=== PATIENT | female | born 1990 | race African-American/Black ===

== ENCOUNTER 2019-11-25 20:07 | Emergency (ER) | payer SELFPAY ==
[2019-11-25 20:16] VITALS: TEMP 98.4; BMI 47.6
[2019-11-25] MEDS ORDERED: KETOROLAC TROMETHAMINE 60 MG/2 ML VIAL ONE (20:18)
[2019-11-25] MEDS ORDERED: KETOROLAC TROMETHAMINE 60 MG/2 ML VIAL IM ONE (20:23)
--- NOTE | 2019-11-25 20:41 | PDOC ---
Documentation entered by Maranda Solis SCRIBE, acting as scribe for Donald Davey MD. Donald Davey MD: This documentation has been prepared by the desireeibe, Maranda Solis SCRIBE, under my direction and personally reviewed by me in its entirety. I confirm that the documentation accurately reflects all work, treatment, procedures, and medical decision making performed by me. History of Present Illness - General Chief Complaint: Chest Pain Stated Complaint: CHEST PAIN History Source: Patient Exam Limitations: No Limitations - History of Present Illness Initial Comments: 11/25/19 20:32 Patient is a 39 year old female with a significant past medical history of HTN( compliant with medication) who presents to the ED with 1 day of chest pain. Patient describes the pain as sharp and radiates to her shoulders with a severity of 10/10, she states it worsens with exertion. She states she took her medication this morning and denies taking any medication for her symptoms. Patient denies any recent illnesses. Denies any family history of cardiovascular disease. PAST MEDICAL HISTORY: HTN PAST SURGICAL HISTORY: no significant history FAMILY HISTORY: no pertinent history SOCIAL HISTORY: Pt lives with family and is employed. Denies EtOH use and recreational drug use. MEDICATIONS: reviewed ALLERGIES: As per nursing notes General: No fevers or chills, no weakness, no weight loss HEENT: No change in vision. No sore throat,. No ear pain CardioVascular: +Chest pain. No shortness of breath Respiratory:No cough, or wheezing. Gastrointestinal: no nausea, vomiting, diarrhea or constipation, No rectal bleeding Genitourinary: No dysuria, hematuria, or frequency Musculoskeletal: No joint or muscle pain or swelling Neurologic: No headache, vertigo, dizziness or loss of consciousness Psychiatric: nor depression Skin: No rashes or easy bruising Endocrine: no increased thirst or abnormal weight change Allergic: no skin or latex allergy All other systems reviewed and normal General: Well-nourished well-developed individual, no acute distress HEENT: Throat: Normal, tonsils normal, no erythema or exudate Neck: Supple, no meningeal signs, no lymphadenopathy Eyes::Pupils equal reactive and round, extraocular motion intact Chest: +Pain reproduced with palpation to anterior chest wall. Pain reproduced with movement and deep respiration. Cardiac: S1-S2 normal, regular rate and rhythm, no murmurs rubs or gallops Respiratory: Lungs clear to auscultation bilateral Abdomen: Soft, nondistended, normal bowel sounds, nontender to palpation diffusely Extremities: Warm, dry, no cyanosis, clubbing, or edema Skin: No rashes Neuro: Alert and oriented x3, nonfocal exam, grossly intact, normal gait Psych: Normal mood and affect Assessment and plan: This is a 29-year-old female who comes in complaining of approximately 1 hour of anterior chest wall pain. Pain is worse with movement and use of muscles of anterior chest wall. Pain is reproduced with palpation. Patient had an EKG that showed normal sinus rhythm at a rate of [address]- T wave changes and normal EKG Patient given Toradol and prescription for naproxen sent to her pharmacy. Patient discharged. Past History - Past Medical History Allergies/Adverse Reactions: Allergies Allergy/AdvReac Type Severity Reaction Status Date / Time No Known Allergies Allergy Verified 11/25/19 20:08 Home Medications: Ambulatory Orders Hydrochlorothiazide [Hctz -] 12.5 mg PO DAILY 11/25/19 Lisinopril 20 mg PO DAILY 11/25/19 Naproxen [Naprosyn -] 500 mg PO BID #14 tablet 11/25/19 Review of Systems - Review of Systems Able to Perform ROS?: Yes *Physical Exam - Vital Signs Last Vital Signs Temp Pulse Resp BP Pulse Ox 98.4 F 86 26 H 174/120 H 100 11/25/19 20:12 11/25/19 20:12 11/25/19 20:12 11/25/19 20:12 11/25/19 20:12 ED Treatment Course - Medications Given in the ED: ED Medications Discontinued Medications Generic Name Dose Route Start Last Admin Trade Name Freq PRN Reason Stop Dose Admin Ketorolac Tromethamine 60 mg 11/25/19 20:23 11/25/19 20:23 Toradol Injection - IM 11/25/19 20:24 60 mg ONCE ONE Administration Discharge - Discharge Information Problems reviewed: Yes Clinical Impression/Diagnosis: Costochondritis, acute Condition: Stable Disposition: HOME - Admission No - Follow up/Referral - Patient Discharge Instructions Additional Instructions: I sent a prescription to your pharmacy for naproxen get it filled and take 1 tablet twice a day, Return to the emergency department immediately with ANY new, persistent or worsening symptoms. Continue any medications as previously prescribed by your physician. You should follow up with your primary doctor as soon as possible regarding today's emergency department visit. . Please make sure your doctor reviews the results of your emergency evaluation. Thank you for coming to the Emergency Department today for your care. It was a pleasure to see you today. Please note that your evaluation is INCOMPLETE until you follow-up with your doctor. - Post Discharge Activity
[2019-11-25 20:44] VITALS: BP 159/113; PULSE 70
--- NOTE | 2019-11-26 09:29 | EKG ---
Test Reason : Blood Pressure : / mmHG Vent. Rate : 073 BPM Atrial Rate : 073 BPM P-R Int : 148 ms QRS Dur : 084 ms QT Int : 396 ms P-R-T Axes : 032 049 009 degrees QTc Int : 436 ms NORMAL SINUS RHYTHM NORMAL ECG NO PREVIOUS ECGS AVAILABLE Confirmed by Howard Rojas ([id number]) on 11/26/2019 9:29:23 AM Referred By: RASHMI JONES Confirmed By:Howard Rojas
== END 2019-11-25 21:18 | disposition home or self-care (01) ==
LOC: FER 20:07
PROC: 3E0233Z Introduction of Anti-inflammatory into Muscle, Percutaneous Approach (ICD-10-PCS; principal; 2019-11-25)
DX: M94.0 Chondrocostal junction syndrome [Tietze] (principal); I10 Essential (primary) hypertension
CPT/HCPCS: 93005; 99284-25

== ENCOUNTER 2021-09-03 10:31 | Emergency (ER) | payer OTHER ==
[2021-09-03 10:44] VITALS: TEMP 98.9; BMI 47.7
[2021-09-03 11:40] LABS: HCG,QUALITATIVE URINE Negative
[2021-09-03 12:09] VITALS: BP 138/89; PULSE 89
[2021-09-03] MEDS ORDERED: KETOROLAC TROMETHAMINE 15 MG/ML VIAL IVPUSH ONE (12:31)
[2021-09-03] MEDS ORDERED: ACETAMINOPHEN 1000 MG/100 ML VIAL IVPB ONE (12:31)
[2021-09-03] MEDS ORDERED: KETOROLAC TROMETHAMINE 15 MG/ML VIAL ONE (13:01)
[2021-09-03] MEDS ORDERED: ACETAMINOPHEN INJECTION 100 ML IVPB ONE (13:01)
[2021-09-03 13:02] LABS: BASO % 0.8 % (0-2.0); EOS % 1.3 % (0-4.5); HEMATOCRIT 35.3 % (32.4-45.2); HEMOGLOBIN 11.8 GM/dL (10.7-15.3); LYMPH % 26.1 % (8-40); MCH 28.6 pg (25.7-33.7); MCHC 33.4 g/dl (32.0-36.0); MEAN CELL VOLUME 85.7 fl (80-96); MEAN PLT VOLUME 8.4 fl (7.5-11.1); MONO % 6.7 % (3.8-10.2); NEUT % 65.1 % (42.8-82.8); PLATELET COUNT 302 10^3/uL (134-434); RBC 4.12 M/mm3 (3.60-5.2); RDW 12.9 % (11.6-15.6); WHITE BLOOD COUNT 5.8 K/mm3 (4.0-10.0)
== END 2021-09-03 15:25 | disposition home or self-care (01) ==
LOC: FER 10:31
PROC: 3E033GC Introduction of Other Therapeutic Substance into Peripheral Vein, Percutaneous Approach (ICD-10-PCS; principal; 2021-09-03)
DX: N93.9 Abnormal uterine and vaginal bleeding, unspecified (principal)
CPT/HCPCS: 36415; 76856-TC; 81003; 81015; 84703; 85025; 86850; 86900; 86901; 87086; 99284-25; J0131